=== PATIENT | male | born 1960 | race Caucasian/White ===

== ENCOUNTER 2020-11-13 09:11 | Observation (INO) | payer OTHER, SELFPAY ==
[2020-11-13] VITALS (9 sets, daily range): BP systolic 122–176; BP diastolic 67–96; PULSE 78–105; RESP 18–20; TEMP 36.8–38.1; O2SAT 93–98; BMI 41.5; BMI 40.4
--- NOTE | 2020-11-13 09:29 | W.ED.EXTPRO ---
Documented by User: RITO Toure 11/13/20 11:06 HPI - Extremity Problem General: Chief complaint: Extremity Injury, Upper Stated complaint: RUE PAIN,REDNESS,SWELLING Time Seen by Provider: 11/13/20 09:13 Source: patient Mode of arrival: ambulatory Limitations: no limitations History of Present Illness: HPI Narrative: Patient is a nice 60-year-old male who presents to ED today with a complaint of right upper extremity redness, swelling, and pain. He states yesterday he noticed a small knot near his volar forearm and states this morning he woke up with the entire forearm swollen and red. He denies any known injury or trauma. No previous DVTs. He states he has no known medical conditions and does not take any medications. He has no history of staph or MRSA. MD Complaint: extremity pain and extremity swelling Onset (ago): hour(s) Pain Consistency: constant Location: right and upper extremity Quality: burning Relieving factors: nothing Exacerbating factors: nothing Associated symptoms: Reports no associated symptoms; Deny chest pain or fever(s) Review of Systems Const: Denies: fever(s), chills, body aches, fatigue or malaise Card: Denies: chest pain, palpitations, irregular heart rhythm, edema, lightheadedness, syncope, pre-syncope or dyspnea on exertion Resp: Denies: dyspnea, productive cough, non-productive cough, wheezing, pain on inspiration, hemoptysis or chest congestion GI: Denies: abdominal pain Musc: Reports: extremity pain and extremity swelling; Denies: neck pain, back pain, joint pain or joint swelling Skin/Breast: Reports: changes in skin color (redness to R forearm) Neuro: Denies: headache(s), numbness in extremities, weakness in extremities or sensory changes [facility] ED PFSH: Medical History History of hypertension Surgical History No pertinent past surgical history Family History Grandfather Cancer Social History Smoking and tobacco status: current every day smoker Alcohol intake: current Alcohol intake frequency: 3 or more drinks per day Substance/Drug Use: never Physical Exam Const: COMMON NORMALS: no acute distress, patient oriented x3, no limitations and alert GENERAL APPEARANCE: cooperative NUTRITIONAL APPEARANCE: obese morbidly obese ORIENTATION/CONSCIOUSNESS: Yes awake, Yes oriented to person, Yes oriented to place and Yes oriented to time HENMT: COMMON NORMALS: normocephalic and atraumatic HEAD & SCALP: normocephalic and atraumatic Resp: COMMON NORMALS: normal respiratory effort and clear to auscultation bilaterally AUSCULTATION: clear to auscultation bilaterally Cardio: COMMON NORMALS: regular rate and regular rhythm RATE: regular rate RHYTHM: regular rhythm Extremity: COMMON NORMALS: full ROM and capillary refill normal RIGHT UPPER EXTREMITY: Yes lower arm OTHER: patient has fairly significant swelling throughout forearm; there is erythema and warmth mainly affecting the dorsal aspect; few scattered scabbed lesions; he has lymphangitic streaking up his arm that extends proximally and terminates about an inch from his axilla patient maintains full ROM; no compartment syndrome; cap refill and radial pulse normal; sensory intact Neuro: COMMON NORMALS: patient oriented x3, moves all extremities, no focal motor deficits and no sensory deficits noted SENSORIUM/ORIENTATION: Yes alert, Yes oriented to person, Yes oriented to place and Yes oriented to time Skin: NARRATIVE SKIN EXAM: see extremity assessment for pertinent skin findings Course Vital Signs: Vital signs: Vital Signs Temperature 98.2 F 11/13/20 15:40 Pulse Rate 78 11/13/20 15:40 Respiratory Rate 18 11/13/20 15:40 Blood Pressure 147/93 11/13/20 15:40 Pulse Oximetry 93 11/13/20 15:40 MDM - Extremity (Nontraumatic) MDM Narrative: Medical decision making narrative: Patient has R arm cellulitis with lymphangitis that has rapidly progressed since starting yesterday. He has streaking proximally up his arm to almost his axillary region. He is not tachy or febrile but has a white count of 19,000 and a CRP of over 250. Lacate is normal. Patient would benefit from hospitalization and continued IV abx. He has been started on vancomycin and fluids here. Dr. Peck will also evaluate patient. Lab Data: Labs: Lab Results 11/13/20 11/13/20 11/13/20 09:51 09:51 09:51 WBC 19.0 10^3/uL H 10 ^3/uL (4.0-10.0) RBC 5.12 10^6/uL 10^6 /uL (4.1-5.3) Hgb 16.1 g/dL g/dL (11.7-16.6) Hct 48.1 % % (42.0-52.0) MCV 93.9 fl fl (80-94) MCH 31.4 pg pg (28.0-34.0) MCHC 33.5 g/dL g/dL (30.0-36.0) RDW 13.1 % % (12.1-15.1) Plt Count 270 10^3/cmm 10^3 /cmm (130-400) MPV 9.5 fL fL (7.4-10.4) Neut % (Auto) 86.7 % % Lymph % (Auto) 7.1 % % [place] % (Auto) 5.1 % % Eos % (Auto) 0.2 % % Baso % (Auto) 0.2 % % Neut # (Auto) 16.43 10^3/uL H 1 0^3/uL (1.8-7.7) Lymph # (Auto) 1.3 10^3/uL 10^3/ uL (0.8-4.8) [place] # (Auto) 1.0 10^3/uL H 10^ 3/uL (0.2-0.9) Eos # (Auto) 0.0 10^3/uL 10^3/ uL (0.0-0.8) Baso # (Auto) 0.0 10^3/uL 10^3/ uL (0.0-0.1) Nucleated RBC % (a uto) 0 % % Nucleated RBCs # 0.0 /100WBC /100W BC Sodium 133 mmol/L L mmol /L (136-145) Potassium 4.2 mmol/L mmol/L (3.5-5.1) Chloride 97 mmol/L L mmol/ L (98-107) Carbon Dioxide 24 mmol/L mmol/L (22-29) Anion Gap 16.2 (5-19) BUN 9 mg/dL mg/dL (8-23) Creatinine 1.1 mg/dL mg/dL (0.7-1.2) GFR Calculation 68.3 mL/min L mL/ min (90-130) Glucose 110 mg/dL mg/dL (65-115) Calculated Osmolal ity 275 mOsm/kg L mOs m/kg (285-295) Lactic Acid 1.2 mmol/L mmol/L (0.5-2.2) Uric Acid Calcium 9.5 mg/dL mg/dL (8.5-10.5) Total Bilirubin 0.7 mg/dL mg/dL (0.15-1.2) AST 13 U/L U/L (0-40) ALT 13 U/L U/L (0-41) Alkaline Phosphata se 76 IU/L IU/L (40-130) Creatine Kinase C-Reactive Protein 250.8 mg/L H mg/L (0.0-4.9) Total Protein 7.8 g/dL g/dL (6.6-8.7) Albumin 3.7 g/dL g/dL (3.5-5.2) Globulin 4.1 g/dL g/dL (1.3-4.6) Procalcitonin 11/13/20 09:51 WBC RBC Hgb Hct MCV MCH MCHC RDW Plt Count MPV Neut % (Auto) Lymph % (Auto) [place] % (Auto) Eos % (Auto) Baso % (Auto) Neut # (Auto) Lymph # (Auto) [place] # (Auto) Eos # (Auto) Baso # (Auto) Nucleated RBC % (a uto) Nucleated RBCs # Sodium Potassium Chloride Carbon Dioxide Anion Gap BUN Creatinine GFR Calculation Glucose Calculated Osmolal ity Lactic Acid Uric Acid 6.4 mg/dL mg/dL (3.4-7.0) Calcium Total Bilirubin AST ALT Alkaline Phosphata se Creatine Kinase 111 U/L U/L (39-308) C-Reactive Protein Total Protein Albumin Globulin Procalcitonin 0.20 ng/mL ng/mL (0-0.5) Imaging Data^: US venous R UE: Radiologist's impression: [place] [address] [id number] ReportSigned Patient: Snehal Mosley RUnit #: [id number]: 1Acct#:[id number]/Sex: 60 / MADM Date: 11/13/20Loc: ERRoom/Bed:Attending Dr: Ordering Provider/Ordering MD: Marcela Gray Date of Service: 11/13/20 Procedure(s): [place] [id number] Accession Number(s): [id number] Report Number: [id number] PROCEDURE INFORMATION: Exam: US Duplex Right Upper Extremity Veins, Limited Exam date and time: 11/13/2020 9:28 AM Age: 60 years old Clinical indication: Swelling (edema) of limb and other: Redness; Upper extremity, right; Additional info: Redness/swelling TECHNIQUE: Imaging protocol: Real-time Duplex ultrasound of the Right Upper Extremity with 2-D villagran scale, color Doppler flow and spectral waveform analysis with image documentation. Limited exam focused on the right upper extremity veins. COMPARISON: No relevant prior studies available. FINDINGS: Right deep veins: Unremarkable. Axillary and brachial veins are patent throughout without thrombus. Normal Doppler waveforms. Normal compressibility and/or augmentation response. Visualized internal jugular and subclavian veins are patent. Right superficial veins: Unremarkable. Visualized cephalic and basilic veins are patent without thrombus. Soft tissues: There is diffuse subcutaneous edema of the right forearm. No masses are seen. US/[place] [id number] IMPRESSION: No evidence of deep vein thrombosis. Dictated By:Reyes Harrell By:Reyes Harrell Date/Time:11/13/20 1104DD/ 1102 Discharge Plan Discharge Patient Disposition: Admitted As Inpatient Admit Provider: Steve Collins Clinical Impression: Cellulitis of forearm, right, Acute lymphangitis of right upper extremity Condition: Stable Coding Level of Care Code ED Analytical Scientist for [facility] Exam Detailed Documented by User: Milton Peck DO 11/13/20 17:17 HPI - Extremity Problem General: Chief complaint: Extremity Injury, Upper Stated complaint: RUE PAIN,REDNESS,SWELLING Time Seen by Provider: 11/13/20 09:13 History of Present Illness: HPI Narrative: 60-year-old male comes in complaining of swelling and redness on the volar surface of the right forearm began yesterday with a small lump and is spread now proximally across the back of his arm and involves almost the entire right forearm extending nearly to the axilla he has tenderness in the axilla itself has had some sweats and chills no vomiting or diarrhea MD Complaint: extremity pain and extremity swelling Onset (ago): day(s) Pain Consistency: constant Location: right and upper extremity Quality: burning and aching Radiation: proximal Relieving factors: nothing Exacerbating factors: nothing Associated symptoms: Reports fever(s) and myalgias; Deny arthralgias, chest pain, rash or short of breath Review of Systems Const: Reports: fever(s) ENMT: Denies: throat pain, ear or mastoid pain, nasal discharge or nasal congestion Card: Denies: chest pain Resp: Denies: dyspnea, productive cough or non-productive cough GI: Denies: abdominal pain, nausea, vomiting, hematemesis, coffee ground emesis, diarrhea, constipation, bloating, hematochezia or melena : Denies: flank pain, dysuria, urinary frequency or urinary urgency Skin/Breast: Denies: rash PFSH ED PFSH: Medical History History of hypertension Surgical History No pertinent past surgical history Family History Grandfather Cancer Social History Smoking and tobacco status: current every day smoker Alcohol intake: current Alcohol intake frequency: 3 or more drinks per day Substance/Drug Use: never Physical Exam Const: COMMON NORMALS: no acute distress GENERAL APPEARANCE: cooperative and comfortable ORIENTATION/CONSCIOUSNESS: Yes awake, Yes oriented to person, Yes oriented to place and Yes oriented to time HENMT: COMMON NORMALS: normocephalic, atraumatic and hearing grossly normal bilaterally HEAD & SCALP: normocephalic and atraumatic Neck/C-Spine: COMMON NORMALS: no JVD Resp: COMMON NORMALS: normal respiratory effort, No retractions, No use of accessory muscles and clear to auscultation bilaterally AUSCULTATION: clear to auscultation bilaterally Cardio: COMMON NORMALS: no JVD, regular rate, regular rhythm and No murmurs present (Cardio) RATE: regular rate RHYTHM: regular rhythm GI: COMMON NORMALS: Soft to palpation and No hepatosplenomegaly present AUSCULTATION: Yes normoactive bowel sounds PALPATION: Yes Soft to palpation, No Tenderness to palpation present (GI), No Guarding due to palpation present (GI) and Yes No hepatosplenomegaly present Extremity: OTHER: Redness erythema induration of the skin spreading proximally involves almost the entire right forearm with a little sparing minimal in the hand itself however there is extension with lymphadenitis lymphadenitis extending up the posterior aspect of the right arm had mildly tender axillary lymphadenopathy no active drainage. Neuro: SENSORIUM/ORIENTATION: Yes oriented to person, Yes oriented to place and Yes oriented to time Skin: COMMON NORMALS: no rashes or lesions noted GENERAL SKIN EXAM: no rashes or lesions noted Course Vital Signs: Vital signs: Vital Signs Temperature 98.2 F 11/13/20 15:40 Pulse Rate 78 11/13/20 15:40 Respiratory Rate 18 11/13/20 15:40 Blood Pressure 147/93 11/13/20 15:40 Pulse Oximetry 93 11/13/20 15:40 MDM - Extremity (Nontraumatic) Lab Data: Labs: Lab Results 11/13/20 11/13/20 11/13/20 09:51 09:51 09:51 WBC 19.0 10^3/uL H 10 ^3/uL (4.0-10.0) RBC 5.12 10^6/uL 10^6 /uL (4.1-5.3) Hgb 16.1 g/dL g/dL (11.7-16.6) Hct 48.1 % % (42.0-52.0) MCV 93.9 fl fl (80-94) MCH 31.4 pg pg (28.0-34.0) MCHC 33.5 g/dL g/dL (30.0-36.0) RDW 13.1 % % (12.1-15.1) Plt Count 270 10^3/cmm 10^3 /cmm (130-400) MPV 9.5 fL fL (7.4-10.4) Neut % (Auto) 86.7 % % Lymph % (Auto) 7.1 % % [place] % (Auto) 5.1 % % Eos % (Auto) 0.2 % % Baso % (Auto) 0.2 % % Neut # (Auto) 16.43 10^3/uL H 1 0^3/uL (1.8-7.7) Lymph # (Auto) 1.3 10^3/uL 10^3/ uL (0.8-4.8) [place] # (Auto) 1.0 10^3/uL H 10^ 3/uL (0.2-0.9) Eos # (Auto) 0.0 10^3/uL 10^3/ uL (0.0-0.8) Baso # (Auto) 0.0 10^3/uL 10^3/ uL (0.0-0.1) Nucleated RBC % (a uto) 0 % % Nucleated RBCs # 0.0 /100WBC /100W BC Sodium 133 mmol/L L mmol /L (136-145) Potassium 4.2 mmol/L mmol/L (3.5-5.1) Chloride 97 mmol/L L mmol/ L (98-107) Carbon Dioxide 24 mmol/L mmol/L (22-29) Anion Gap 16.2 (5-19) BUN 9 mg/dL mg/dL (8-23) Creatinine 1.1 mg/dL mg/dL (0.7-1.2) GFR Calculation 68.3 mL/min L mL/ min (90-130) Glucose 110 mg/dL mg/dL (65-115) Calculated Osmolal ity 275 mOsm/kg L mOs m/kg (285-295) Lactic Acid 1.2 mmol/L mmol/L (0.5-2.2) Uric Acid Calcium 9.5 mg/dL mg/dL (8.5-10.5) Total Bilirubin 0.7 mg/dL mg/dL (0.15-1.2) AST 13 U/L U/L (0-40) ALT 13 U/L U/L (0-41) Alkaline Phosphata se 76 IU/L IU/L (40-130) Creatine Kinase C-Reactive Protein 250.8 mg/L H mg/L (0.0-4.9) Total Protein 7.8 g/dL g/dL (6.6-8.7) Albumin 3.7 g/dL g/dL (3.5-5.2) Globulin 4.1 g/dL g/dL (1.3-4.6) Procalcitonin 11/13/20 09:51 WBC RBC Hgb Hct MCV MCH MCHC RDW Plt Count MPV Neut % (Auto) Lymph % (Auto) [place] % (Auto) Eos % (Auto) Baso % (Auto) Neut # (Auto) Lymph # (Auto) [place] # (Auto) Eos # (Auto) Baso # (Auto) Nucleated RBC % (a uto) Nucleated RBCs # Sodium Potassium Chloride Carbon Dioxide Anion Gap BUN Creatinine GFR Calculation Glucose Calculated Osmolal ity Lactic Acid Uric Acid 6.4 mg/dL mg/dL (3.4-7.0) Calcium Total Bilirubin AST ALT Alkaline Phosphata se Creatine Kinase 111 U/L U/L (39-308) C-Reactive Protein Total Protein Albumin Globulin Procalcitonin 0.20 ng/mL ng/mL (0-0.5) Discharge Plan Discharge Patient Disposition: Admitted As Inpatient Admit Provider: Steve Collins Clinical Impression: Cellulitis of forearm, right, Acute lymphangitis of right upper extremity Condition: Stable Coding Level of Care Code ED Analytical Scientist for [facility] Fwd Exam Detailed
[2020-11-13 10:03] LABS: Basophils % 0.2 %; Eosinophils % 0.2 %; Hematocrit 48.1 % (42.0-52.0); Hemoglobin 16.1 g/dL (11.7-16.6); Lymphocytes # 1.3 10^3/uL (0.8-4.8); Lymphocytes % 7.1 %; Mean Corpuscular HGB Conc 33.5 g/dL (30.0-36.0); Mean Corpuscular Hemoglobin 31.4 pg (28.0-34.0); Mean Corpuscular Volume 93.9 fl (80-94); Mean Platelet Volume 9.5 fL (7.4-10.4); Monocytes % 5.1 %; Neutrophils # 16.43 10^3/uL (1.8-7.7); Neutrophils % 86.7 %; Nucleated Red Blood Cells % 0 %; Platelet Count 270 10^3/cmm (130-400); Red Blood Count 5.12 10^6/uL (4.1-5.3); Red Cell Distribution Width 13.1 % (12.1-15.1)
[2020-11-13] MEDS: vancomycin 1,000 MG in sodium chloride 0.9% 250 ML 250 MG IV (10:13)
[2020-11-13] MEDS: sodium chloride 0.9% 1,000 ML 999 ML IV (10:16)
[2020-11-13 10:23] LABS: Lactic Sepsis W/Reflex 1.2 mmol/L (0.5-2.2)
[2020-11-13 10:31] LABS: Alanine Aminotransferase 13 U/L (0-41); Albumin Level 3.7 g/dL (3.5-5.2); Alkaline Phosphatase 76 IU/L (40-130); Aspartate Amino Transferase 13 U/L (0-40); Blood Urea Nitrogen 9 mg/dL (8-23); C Reactive Protein 250.8 mg/L (0.0-4.9); Calcium 9.5 mg/dL (8.5-10.5); Carbon Dioxide 24 mmol/L (22-29); Chloride 97 mmol/L (98-107); Globulin 4.1 g/dL (1.3-4.6); Glomerular Filtration Rate 68.3 mL/min (90-130); Glucose 110 mg/dL (65-115); Osmolality Calculated 275 mOsm/kg (285-295); Sodium 133 mmol/L (136-145); Total Bilirubin 0.7 mg/dL (0.15-1.2); Total Protein 7.8 g/dL (6.6-8.7)
[2020-11-13 10:34] LABS: Anion Gap 16.2 (5-19); Potassium 4.2 mmol/L (3.5-5.1)
--- NOTE | 2020-11-13 11:07 | PC.NURSE ---
Received report from KESHAV Stewart
--- NOTE | 2020-11-13 12:56 | PM.HP ---
Providers/Chief Complaint Admitting Physician: Steve Collins MD Chief Complaint: RUE PAIN,REDNESS,SWELLING History of Present Illness Snehal Mosley is a 60 year old male with a past medical history of hypertension off medications, who presents [facility] due to complaints of right arm swelling, erythema, warmth, tenderness. Patient tells me that about a day ago, he woke up with a little bit of a bump right under his right elbow, and over the next 24 hours it rapidly evolved to diffuse swelling just above the right elbow extending down to right mid arm, with swelling, erythema, warmth, tenderness. Denies any injuries, does report he has cats, and he has a cat scratch in 2 areas involved with erythema, one just at the elbow joint line, 1 in the mid forearm. Denies any rabbit hunting. Denies any fishing. Has had subjective fevers, chills. Denies history of diabetes, no history immunocompromise state. In the emergency room, he was found to have cellulitis, ultrasound was negative for DVT. Was given vancomycin, hospitalist team was called for admission for cellulitis. Currently complaining of minimal pain, no pain with range of motion just tightness, no loss of sensation, good radial and ulnar pulses, good capillary refill, no significant evidence of compartment syndrome. Review of Systems Const: Reports: fever(s) and chills; Denies: body aches, fatigue or malaise Eyes: Denies: change in vision or blurry vision ENMT: Denies: nasal congestion Resp: Denies: dyspnea, productive cough, non-productive cough or wheezing GI: Denies: abdominal pain, nausea, vomiting, hematemesis, diarrhea, constipation, hematochezia or melena : Denies: flank pain, difficulty urinating, dysuria or urinary frequency Musc: Denies: neck pain or back pain Skin/Breast: Reports: rash, erythema, skin tenderness and skin swelling; Denies: skin pain Neuro: Denies: headache(s), dizziness or vertigo Endo: Denies: polyuria or polydipsia Jose Martin/Lymph: Reports: enlarged lymph nodes and tender lymph nodes Medications/Allergies Home Medications Medication Instructions Recorded Confirmed Last Taken Type No Known Home Medications 11/13/20 11/13/20 Unknown History Allergies Allergy/AdvReac Type Severity Reaction Status Date / Time No Known Allergies Allergy Unverified 11/13/20 11:10 PFSH Acute PFSH: Medical History (Updated 11/13/20 @ 13:02 by Steve Collins MD) History of hypertension Surgical History (Updated 11/13/20 @ 13:02 by Steve Collins MD) No pertinent past surgical history Family History (Updated 11/13/20 @ 13:02 by Steve Collins MD) Grandfather Cancer Social History (Updated 11/13/20 @ 13:02 by Steve Collins MD) Smoking and tobacco status: current every day smoker Alcohol intake: current Alcohol intake frequency: 3 or more drinks per day Substance/Drug Use: never Vitals/I&O/Wt Last Vital Signs Temp 98.3 F 11/13/20 12:00 Pulse 85 11/13/20 12:00 Resp 20 H 11/13/20 12:00 BP 176/91 11/13/20 12:00 Pulse Ox 98 11/13/20 12:00 11/12/20 11/13/20 11/13/20 22:59 06:59 14:59 Intake Total 250 / 250 Balance 250 / 250 Weight last 48 hrs Weight 138.799 kg Physical Exam Const: COMMON NORMALS: no acute distress and patient oriented x3 GENERAL APPEARANCE: cooperative and comfortable HENMT: COMMON NORMALS: normocephalic HEAD & SCALP: normocephalic Eye: COMMON NORMALS: Equal, round and reactive pupils present and EOMs intact bilaterally GENERAL EYE: appearance normal, both eyes and all related structures PUPIL: Yes Equal, round and reactive pupils present Neck/C-Spine: COMMON NORMALS: full ROM and no lymphadenopathy THYROID: Thyroid normal Lymph: LYMPHATIC: no lymphadenopathy noted Resp: COMMON NORMALS: normal respiratory effort, No retractions, No use of accessory muscles and clear to auscultation bilaterally AUSCULTATION: clear to auscultation bilaterally Cardio: COMMON NORMALS: regular rate, regular rhythm, S1 normal heart sound present, S2 normal heart sound present, No gallops present (Cardio), No clicks present (Cardio) and No murmurs present (Cardio) RATE: regular rate RHYTHM: regular rhythm HEART SOUNDS: S1 normal heart sound present and S2 normal heart sound present GI: COMMON NORMALS: Normal to inspection, nondistended, normoactive bowel sounds present, Soft to palpation and non-tender Extremity: COMMON NORMALS: normal to inspection, full ROM and no pedal edema NARRATIVE EXTREMITY EXAM: Right upper extremity, erythema, swelling, tenderness extending from just above the right elbow joint line, extending down to the mid forearm, patchy areas of erythema, swelling, tenderness, 2 distinct areas of breaks in the skin, indicated as possible this cat scratches, 1 right just below the right elbow joint line, 0.5 cm long, 1 at the right mid forearm for 5 cm long, lymphadenopathy, axillary lymphadenopathy, epitrochlear lymph node Neuro: COMMON NORMALS: patient oriented x3, CN's II-XII intact bilaterally, moves all extremities and no focal motor deficits Psych: COMMON NORMALS: mental status grossly normal, Normal thought process present and cooperative THOUGHT PROCESS: Normal thought process present Data : 11/13/20 09:51 11/13/20 09:51 Micro: Microbiology 11/13/20 09:51 Blood Culture - Preliminary Blood SPECIMEN COLLECTED 11/13/20 09:51 Blood Culture - Preliminary Blood SPECIMEN COLLECTED A&P Assessment and plan (1) Cellulitis of forearm, right: -Cellulitis of right lower extremity -With lymphadenopathy, some degree of lymphadenitis -Given evidence of cat scratch, highly suspicious of cat scratch fever -But cannot rule out underlying cellulitis Plan: -Given rapid nature of involvement, will order CT scan to evaluate for possible necrotizing fasciitis, order CPK, and as is involving the right elbow need to evaluate for possible septic joint -CPK, pro-Gonzalo, monitor for fevers -Continue vancomycin -Add azithromycin -Bartonella PCR -Monitor for fevers, monitor for compartment syndrome -Full code -Lovenox for DVT prophylaxis History of hypertension, off medications, start Norvasc Status: Acute (2) Acute lymphangitis of right upper extremity: Status: Acute Attestations Medical Necessity Statement*: Patient requires hospitalization, outpatient with observation, for cellulitis right forearm, cat scratch disease, Coding Level of Care Code Acute Tilt Tray Driver for [facility] Diagnoses Cellulitis of forearm, right L03.113 Acute lymphangitis of right upper extremity L03.123
--- NOTE | 2020-11-13 14:36 | CTR_ITS ---
PROCEDURE INFORMATION: Exam: CT Right Upper Extremity Without Contrast, Forearm Exam date and time: 11/13/2020 2:36 PM Age: 60 years old Clinical indication: Arm, lower and elbow; Right; Patient HX: R forearm and elbow pain redness and swelling; Additional info: Celullitis TECHNIQUE: Imaging protocol: CT of the Right upper extremity without contrast was performed. Exam focused on the forearm. Radiation optimization: All CT scans at this facility use at least one of these dose optimization techniques: automated exposure control; mA and/or kV adjustment per patient size (includes targeted exams where dose is matched to clinical indication); or iterative reconstruction. COMPARISON: [place] [id number] 11/13/2020 9:51 AM RADIATION DOSE METRICS: Total DLP (mGy-cm): 1878.89 FINDINGS: Bones/joints: Normal. No acute fracture or dislocation. Soft tissues: Diffuse subcutaneous nonlocalized edema seen about the visualized arm, greatest in the region the forearm without focal fluid collection, suggestive of a cellulitis. CT/CT forearm RT wo con* [id number] IMPRESSION: 1. Negative for bony abnormality. 2. Diffuse subcutaneous nonlocalized edema seen about the visualized arm, greatest in the region the forearm without focal fluid collection, suggestive of a cellulitis. Radiation Dose CTDIVOL = (mGy): DLP = 1878.89 (mGy-cm)
[2020-11-13] MEDS: amlodipine 10 mg Tablet PO (14:52)
[2020-11-13] MEDS: azithromycin 250 mg Tablet 500 MG PO (15:30)
[2020-11-13] MEDS: enoxaparin 40 mg/0.4 mL Syringe SUBCUT (15:31)
[2020-11-13] MEDS: D5-NS 0.45% + KCL 20 mEq 20 MEQ/1,000 ML BAG 100 MEQ IV (15:32)
[2020-11-13 15:59] LABS: Creatine Phosphokinase 111 U/L (39-308); Uric Acid 6.4 mg/dL (3.4-7.0)
[2020-11-13] MEDS: vancomycin 1,500 MG/300 ML PIGGYBACK 200 MG IV (17:50)
--- NOTE | 2020-11-13 17:55 | PC.NURSE ---
Shift Note Frequent safety and comfort rounds continue. Orders and/or nursing care completed as indicated. Patient sat up in chair upon arrival from the emergency department. Patient is currently resting comfortably in bed with no complaints. Will continue to monitor.
--- NOTE | 2020-11-13 20:45 | PC.NURSE ---
Patient was transferred down to [place] at 2020 in a wheel chair. At 2041 the patient was brought back up and settled in bed. There were no complications that took place during the trip down and back.
[2020-11-14] MEDS: D5-NS 0.45% + KCL 20 mEq 20 MEQ/1,000 ML BAG 100 MEQ IV ×3 (01:32→21:55)
[2020-11-14 03:57] VITALS: BP 172/90; PULSE 96; RESP 18; TEMP 36.7; O2SAT 94
[2020-11-14 06:05] LABS: Basophils % 0.2 %; Eosinophils # 0.1 10^3/uL (0.0-0.8); Eosinophils % 0.4 %; Hematocrit 44.4 % (42.0-52.0); Hemoglobin 14.7 g/dL (11.7-16.6); Lymphocytes # 1.3 10^3/uL (0.8-4.8); Lymphocytes % 7.9 %; Mean Corpuscular HGB Conc 33.1 g/dL (30.0-36.0); Mean Corpuscular Hemoglobin 31.7 pg (28.0-34.0); Mean Corpuscular Volume 95.7 fl (80-94); Mean Platelet Volume 9.6 fL (7.4-10.4); Monocytes # 1.1 10^3/uL (0.2-0.9); Monocytes % 6.6 %; Neutrophils # 14.31 10^3/uL (1.8-7.7); Neutrophils % 84.3 %; Nucleated Red Blood Cells % 0 %; Platelet Count 235 10^3/cmm (130-400); Red Blood Count 4.64 10^6/uL (4.1-5.3); Red Cell Distribution Width 13.4 % (12.1-15.1)
[2020-11-14 06:32] LABS: Alanine Aminotransferase 11 U/L (0-41); Albumin Level 3.4 g/dL (3.5-5.2); Alkaline Phosphatase 77 IU/L (40-130); Anion Gap 15.2 (5-19); Aspartate Amino Transferase 14 U/L (0-40); Blood Urea Nitrogen 9 mg/dL (8-23); C Reactive Protein 241.8 mg/L (0.0-4.9); Calcium 9.1 mg/dL (8.5-10.5); Carbon Dioxide 21 mmol/L (22-29); Chloride 99 mmol/L (98-107); Glomerular Filtration Rate 98.6 mL/min (90-130); Glucose 122 mg/dL (65-115); Osmolality Calculated 272 mOsm/kg (285-295); Potassium 4.2 mmol/L (3.5-5.1); Sodium 131 mmol/L (136-145); Total Bilirubin 0.5 mg/dL (0.15-1.2); Total Protein 7.4 g/dL (6.6-8.7)
[2020-11-14 06:36] LABS: Procalcitonin 0.22 ng/mL (0-0.5)
[2020-11-14] MEDS: vancomycin 1,500 MG/300 ML PIGGYBACK 200 MG IV ×2 (06:43→18:41)
[2020-11-14 08:24] VITALS: BP 135/84; PULSE 85; RESP 17; TEMP 36.9; O2SAT 95
[2020-11-14] MEDS: pantoprazole DR 40 mg Tablet PO (08:54)
[2020-11-14] MEDS: amlodipine 10 mg Tablet PO (08:54)
[2020-11-14] MEDS: piperacillin-tazobactam 3.375 GM in sodium chloride 0.9% (plus) 50 ML IV ×2 (10:51→21:01)
--- NOTE | 2020-11-14 11:16 | P.PN_ITS ---
Subjective Subjective: Interval history: Patient was seen this morning, continues to have right hand redness, he has a particular area of increased erythema, along the lateral aspect of the right hand, near the elbow joint, and also the redness is extending down to more the proximal phalanges, near the right hand, no pain with range of motion, no paresthesias, febrile overnight up to 100.6, no abdominal pain, no diarrhea, no blurry vision, no headache He does tell me that a few days before the cellulitis started, he was cleaning out his daughter's car, and he got under the dash, and he thinks he might of gotten a scratch from something under the dash but is not sure what, that resulted in a break in the screen, Vitals/I&O/Wt Last Vital Signs Temp 98.4 F 11/14/20 08:24 Pulse 85 11/14/20 08:24 Resp 17 11/14/20 08:24 BP 135/84 11/14/20 08:24 Pulse Ox 95 11/14/20 08:24 11/13/20 11/14/20 11/14/20 22:59 06:59 14:59 Intake Total 1020 / 2270 1540 / 3810 780 / 780 Output Total 300 / 300 Balance 720 / 1970 1540 / 3510 780 / 780 Weight last 48 hrs Weight 138.799 kg Weight 138.799 kg Physical Exam Const: COMMON NORMALS: no acute distress and patient oriented x3 Resp: COMMON NORMALS: normal respiratory effort, No retractions, No use of accessory muscles and clear to auscultation bilaterally AUSCULTATION: clear to auscultation bilaterally Cardio: COMMON NORMALS: regular rate, regular rhythm, S1 normal heart sound present and S2 normal heart sound present RATE: regular rate RHYTHM: regular rhythm HEART SOUNDS: S1 normal heart sound present and S2 normal heart sound present GI: COMMON NORMALS: Normal to inspection, nondistended, normoactive bowel so unds present, Soft to palpation and non-tender PALPATION: Yes Soft to palpation Extremity: COMMON NORMALS: normal to inspection, full ROM and no pedal edema NARRATIVE EXTREMITY EXAM: Right upper extremity, erythema, swelling, tenderness extending from just above the right elbow joint line, extending down now to the proximal phalanges of the right arm, patchy areas of erythema, swelling, tenderness, 2 distinct areas of breaks in the skin, indicated as possible this cat scratches, 1 right just below the right elbow joint line, 0.5 cm long, 1 at the right mid forearm for 5 cm long, lymphadenopathy, axillary lymphadenopathy, epitrochlear lymph node He also has a distinct area of erythema, and density right under the biceps muscle, no palpable pocket of fluid Neuro: COMMON NORMALS: patient oriented x3 Psych: COMMON NORMALS: mental status grossly normal Data : 11/14/20 05:34 11/14/20 05:34 Micro: Microbiology 11/13/20 09:51 Blood Culture - Preliminary Blood NEGATIVE TO DATE 11/13/20 09:51 Blood Culture - Preliminary Blood NEGATIVE TO DATE A&P Assessment and plan (1) Cellulitis of forearm, right: -Cellulitis of right lower extremity -With lymphadenopathy, some degree of lymphadenitis -Given evidence of cat scratch, highly suspicious of cat scratch fever component -However continues to be quite erythematous, tender, with cellulitis area extending down to the right proximal phalanges, also has an area of induration right under the right bicep muscles that is palpable, right elbow continues to be red hot and warm Plan: -Given continued rapid nature of involvement, I spoke to Dr. Santiago, will order MRI -Unlikely to be necrotizing fasciitis, CPK within normal limits, but will add clindamycin -We will add Zosyn for anaerobic coverage -Continue vancomycin for gram-positive staph coverage -Continue azithromycin for possible cat scratch fever -Bartonella PCR -Monitor blood cultures -Monitor for fevers, monitor for compartment syndrome -Full code -Lovenox for DVT prophylaxis History of hypertension, off medications, start Norvasc Status: Acute (2) Acute lymphangitis of right upper extremity: Status: Acute Attestations Medical Necessity Statement*: Patient requires hospitalization for right arm cellulitis, rapidly involving, concerning for possible deep tissue infection, possible septic joint, possible necrotizing fasciitis, requiring additional antibiotics, consultation, MRI Coding Level of Care Code Acute Private Mortgage Banker Safe for Bill Palma Diagnoses Cellulitis of forearm, right L03.113 Acute lymphangitis of right upper extremity L03.123
[2020-11-14 11:57] VITALS: BP 152/99; PULSE 86; RESP 18; TEMP 37; O2SAT 96
[2020-11-14] MEDS: clindamycin 600 MG/50 ML PREMIX 100 MG IV ×2 (12:50→19:27)
--- NOTE | 2020-11-14 13:38 | PC.CHAP ---
Pastoral Care Encounter/Spiritual Assessment Type of Contact [] Declined drying oven attendant visit [] Patient/Family/Request visit [] Outpatient visit [] Follow-up visit [] Physician referral [] Code/Alert [XX] Routine visit [] Staff referral [] Actively dying [] Patient sleeping [] Family support [] [] Out of room [] Palliative care [] [] Receiving care in room [] Pre-surgical visit [] Trauma [] Long length of stay [] ICU visit [] Other: Relational/Emotional Strength [XX] Patient feels connected with others/family/visitors/staff [] Distress [] Loneliness/isolation [] Abandonment Spirituality of Patient [] Person of Rosalinda [] Attends Hinduism of their Rosalinda [] Believes in Prayer [] Reads Bible or Baptism materials [] There are Spiritual issues to be addressed Injector Assembler Interventions [] Prayer [XX] Active listening [XX] Non-anxious presence [] Spiritual/emotional support [] Crisis/trauma care [] Spiritual counseling [] Bereavement support [] Provided bereavement packet [] Provided Bible/devotional materials [] Provided toy/stuffed animal, coloring book to patient or family member [] Provided Communion [] Anointing/[place] [] Salvation [] Completed spiritual assessment [] Other: Impact on Illness or Injury [] Angry [] Fearful [] Anxious [] Often cries [] Exhaustion [] Unable to work [] Unable to attend latter day [] Unable to walk/stand [] Unable to read [] Unable to drive [] Unable to eat/drink [] Unable to sleep [] Unable to be with family [] Patient intubated [] Other: Summary: Spiritual assessment incomplete. Pt denied needing anything and stated that he was fine. Brief visit. Time spent with patient: 5 mins
[2020-11-14] MEDS: lisinopril 20 mg Tablet PO (14:03)
[2020-11-14] MEDS: azithromycin 250 mg Tablet PO (15:50)
[2020-11-14] MEDS: enoxaparin 40 mg/0.4 mL Syringe SUBCUT (15:51)
[2020-11-14 16:40] VITALS: BP 129/81; PULSE 86; RESP 18; TEMP 36.7; O2SAT 97
[2020-11-14 17:43] LABS: Vancomycin Trough 7.1 ug/mL (10-15)
[2020-11-14 20:00] VITALS: BP 110/66; PULSE 86; RESP 21; TEMP 37.3; O2SAT 95
--- NOTE | 2020-11-14 20:09 | PC.PHAR ---
Pharmacokinetic dosing service Date: 11/14/20 Time: 1999 Patient: Floor: Weight: 138.799 Kilograms Vancomycin single level analysis: Current dose being given: mg Current dosing interval: hrs Current infusion time (hrs): 1 Single level Trough Data: Trough level obtained: 7.1 mcg/ml Timing of trough - # of hrs before next dose: 1.2 Hrs Desired peak: 40 mcg/ml Desired trough: 15 mcg/ml Diagnosis: Relevant medical/social history: Cultures and sensitivities: Other labs: Estimated PK Parameters: New rate constant (wyatt): 0.092 hr-1 Half-life: 7.53 Hours Vd from levels: 124.92 Liters (0.7 L/kg) CLvanco= 11.493 L/hr Estimated New Dose and Interval Recommended dose: 3447.6 mg Recommended interval: 11.7 Hrs Patient response: Patient is responding to treatment [yes/no] wbc decreasing, S/SX reduced [yes/no] Renal function is stable/unstable Recommendations: Give Vancomycin 1500 mg q 8 hrs. Infuse over 1.5 hrs Expected Cpeak: 21.5 mcg/mL Expected Ctrough: 11.8 mcg/mL AUC 0-24 /ANTHONY Data: ANTHONY 0.5 mcg/mL: AUC/ANTHONY: 783.1 ANTHONY 1.0 mcg/mL: AUC/ANTHONY: 391.5 Recommended labs and intervals: Measure Bun and Scr 3 times/week. Renal dosing of other antibiotics (review renal dosing of other medications and list guidelines here): Thank you for the consult, will continue to follow. Signature:
Chasidy Javed [facility]
[2020-11-14 23:12] VITALS: BP 121/70; PULSE 82; RESP 18; TEMP 37.4; O2SAT 96
[2020-11-15] MEDS: vancomycin 1,500 MG/300 ML PIGGYBACK 200 MG IV ×3 (00:50→16:24)
[2020-11-15 03:18] VITALS: BP 117/77; PULSE 83; RESP 20; TEMP 37.3; O2SAT 96
[2020-11-15] MEDS: clindamycin 600 MG/50 ML PREMIX 100 MG IV ×2 (03:21→11:10)
[2020-11-15] MEDS: piperacillin-tazobactam 3.375 GM in sodium chloride 0.9% (plus) 50 ML IV ×2 (04:21→12:09)
[2020-11-15 06:32] LABS: Basophils % 0.3 %; Eosinophils # 0.2 10^3/uL (0.0-0.8); Eosinophils % 1.8 %; Hematocrit 40.6 % (42.0-52.0); Hemoglobin 13.1 g/dL (11.7-16.6); Lymphocytes # 1.2 10^3/uL (0.8-4.8); Lymphocytes % 11.9 %; Mean Corpuscular HGB Conc 32.3 g/dL (30.0-36.0); Mean Corpuscular Hemoglobin 31.6 pg (28.0-34.0); Mean Corpuscular Volume 97.8 fl (80-94); Mean Platelet Volume 9.4 fL (7.4-10.4); Monocytes % 9.8 %; Neutrophils # 7.67 10^3/uL (1.8-7.7); Neutrophils % 75.4 %; Nucleated Red Blood Cells % 0 %; Platelet Count 221 10^3/cmm (130-400); Red Blood Count 4.15 10^6/uL (4.1-5.3); Red Cell Distribution Width 13.6 % (12.1-15.1); White Blood Count 10.2 10^3/uL (4.0-10.0)
[2020-11-15 07:08] LABS: Procalcitonin 0.14 ng/mL (0-0.5)
[2020-11-15 07:10] LABS: Alanine Aminotransferase 13 U/L (0-41); Albumin Level 3.1 g/dL (3.5-5.2); Alkaline Phosphatase 64 IU/L (40-130); Anion Gap 14.2 (5-19); Aspartate Amino Transferase 14 U/L (0-40); Blood Urea Nitrogen 9 mg/dL (8-23); C Reactive Protein 123.5 mg/L (0.0-4.9); Calcium 8.8 mg/dL (8.5-10.5); Carbon Dioxide 23 mmol/L (22-29); Chloride 102 mmol/L (98-107); Globulin 3.8 g/dL (1.3-4.6); Glomerular Filtration Rate 98.6 mL/min (90-130); Glucose 115 mg/dL (65-115); Osmolality Calculated 280 mOsm/kg (285-295); Potassium 4.2 mmol/L (3.5-5.1); Sodium 135 mmol/L (136-145); Total Bilirubin 0.3 mg/dL (0.15-1.2); Total Protein 6.9 g/dL (6.6-8.7)
[2020-11-15 07:48] VITALS: BP 125/78; PULSE 79; RESP 18; TEMP 36.7; O2SAT 95
[2020-11-15] MEDS: amlodipine 10 mg Tablet PO (08:05)
[2020-11-15] MEDS: pantoprazole DR 40 mg Tablet PO (08:05)
[2020-11-15] MEDS: lisinopril 20 mg Tablet PO (08:05)
[2020-11-15] MEDS: D5-NS 0.45% + KCL 20 mEq 20 MEQ/1,000 ML BAG 100 MEQ IV (08:42)
--- NOTE | 2020-11-15 10:42 | PM.PN ---
Vitals/I&O/Wt Last Vital Signs Temp 98.0 F 11/15/20 07:48 Pulse 79 11/15/20 07:48 Resp 18 11/15/20 07:48 BP 125/78 11/15/20 07:48 Pulse Ox 95 11/15/20 07:48 11/14/20 11/15/20 11/15/20 22:59 06:59 14:59 Intake Total 1695 / 3525 400 / 3925 1050 / 1050 Balance 1695 / 3525 400 / 3925 1050 / 1050 Weight last 48 hrs Weight 138.799 kg Data : 11/15/20 06:20 11/15/20 06:20 Micro: Microbiology 11/13/20 09:51 Blood Culture - Preliminary Blood NEGATIVE TO DATE 11/13/20 09:51 Blood Culture - Preliminary Blood NEGATIVE TO DATE Coding Level of Care Code Acute Distillery Worker General for Bill Palma
[2020-11-15 11:02] LABS: Erythrocyte Sedimentation Rate 74 mm/hr (0-10)
[2020-11-15 11:19] VITALS: BP 125/76; PULSE 76; RESP 18; TEMP 36.3; O2SAT 97
--- NOTE | 2020-11-15 14:07 | PC.RESP ---
SMOKING CESSATION INFORMATION SENT TO PATIENT.
--- NOTE | 2020-11-15 14:34 | PC.NURSE ---
Patient to MRI at this time.
--- NOTE | 2020-11-15 15:20 | PC.NURSE ---
Patient returned to room at this time.
[2020-11-15 15:27] VITALS: BP 124/71; PULSE 79; RESP 18; TEMP 36.4; O2SAT 98
--- NOTE | 2020-11-15 16:00 | PC.NURSE ---
IV removed at this time and patient tolerated well. Patient is A&Ox3. Respirations even and non-labored on room air. Reviewed patient discharge with patient at this time. Patient verbalized understanding of discharge instructions and follow up appointments. Patient ambulated from the floor with a steady gait.
[2020-11-15] MEDS: azithromycin 250 mg Tablet PO (16:22)
[2020-11-15] MEDS: enoxaparin 40 mg/0.4 mL Syringe SUBCUT (16:22)
--- NOTE | 2020-11-15 16:45 | P.CONIM_ITS ---
Providers/Reason For Consult Consulting Physician/Specialty*: Álvaro Santiago MD; orthopedic surgery Reason for Consult*: Cellulitis, possible abscess left arm Attending Physician: Dc Galvan MD History of Present Illness History of Present Illness Snehal Mosley is a 60 year old male who describes awakening Sunday, 3 days ago with a prominence over his right dorsal forearm. Over the following day he described progressive swelling and erythema from his elbow to his wrist. He described overall having subjective fevers and chills. He was admitted to the hospital here 11/13/2020 and begun on IV antibiotics. Yesterday was called with concerns that the redness had spread into his digits about possible deep abscess. Unfortunately due to his size he was not able to fit in our MRI scanner. CT scan was obtained which showed no definitive deep abscess. The patient today states he is feeling much better. He feels the redness and swelling have improved and he no longer has any visual systemic symptoms Meds/Allergies Home Medications and Allergies Home Medications Medication Instructions Recorded Confirmed Last Taken Type No Known Home Medications 11/13/20 11/13/20 Unknown History Allergies Allergy/AdvReac Type Severity Reaction Status Date / Time No Known Allergies Allergy Unverified 11/13/20 11:10 Current Medications Current Medications Generic Name Dose Route Start Last Admin Trade Name Freq PRN Reason Stop Dose Admin Amlodipine Besylate 10 mg 11/13/20 13:10 11/15/20 08:05 Amlodipine 10 Mg Tablet PO 10 mg DAILY WILLIE Administration Azithromycin 250 mg 11/14/20 15:30 11/15/20 16:22 Azithromycin 250 Mg Tablet PO 250 mg Q24H WILLIE Administration Protocol Enoxaparin Sodium 40 mg 11/13/20 15:30 11/15/20 16:22 Enoxaparin 40 Mg/0.4 Ml Syringe SUBCUT 40 mg Q24H WILLIE Administration Potassium Chloride/Dextrose/Sod Cl 20 meq in 1,000 mls @ 100 mls/hr 11/13/20 14:36 11/15/20 08:42 D5-Ns 0.45% + Kcl 20 Meq IV 100 mls/hr .Q10H WILLIE Administration Piperacillin Sod/Tazobactam 50 mls @ 12.5 mls/hr 11/14/20 11:00 11/15/20 12:09 Sod 3.375 gm/ Sodium Chloride IV 12.5 mls/hr Q8H WILLIE Administration Protocol Clindamycin HCl/Dextrose 600 mg in 50 mls @ 100 mls/hr 11/14/20 12:00 11/15/20 11:40 Cleocin IV Infused Q8H WILLIE Infusion Protocol Vancomycin/PEG/NADA/Lysine/Water 1,500 mg in 300 mls @ 200 mls/hr 11/15/20 00:00 11/15/20 16:24 Vancocin IV 200 mls/hr Q8H WILLIE Administration Lisinopril 20 mg 11/14/20 13:55 11/15/20 08:05 Lisinopril 20 Mg Tablet PO 20 mg DAILY WILLIE Administration Pantoprazole Sodium 40 mg 11/14/20 09:00 11/15/20 08:[address] 40 Mg Tablet PO 40 mg DAILY WILLIE Administration PFSH Acute PFSH: Medical History History of hypertension Surgical History No pertinent past surgical history Family History Grandfather Cancer Social History Smoking and tobacco status: current every day smoker Alcohol intake: current Alcohol intake frequency: 3 or more drinks per day Substance/Drug Use: never Vitals/I&O/Wt Last Vital Signs Temp 97.5 F L 11/15/20 15:27 Pulse 79 11/15/20 15:27 Resp 18 11/15/20 15:27 BP 124/71 11/15/20 15:27 Pulse Ox 98 11/15/20 15:27 11/15/20 11/15/20 11/15/20 06:59 14:59 22:59 Intake Total 400 / 3925 1400 / 1400 Balance 400 / 3925 1400 / 1400 Physical Exam Narrative: EXAM NARRATIVE: Mr. Mosley is a heavier set male in no obvious distress. He has clear swelling from his elbow extending down into his hand. There is a slight erythema induration from the dorsal elbow to approximately the mid forearm and a raised macular rash over the ulnar aspect of his left arm. There is no palpable fluctuance I can appreciate. He can fully extend his elbow and flex to 140 degrees. He can pronate and supinate 70 degrees. His wrist can be dorsiflexed and palmar flex 60 degrees in each direction. He can reach a complete clenched fist as well as extend his digits. His sensation is intact to light touch. Data Imaging^: Other CT: I personally reviewed and interpreted this imaging study as follows: (CT right upper extremity including forearm and elbow) Radiologist's impression: No bony abnormalities are identified. Subcutaneous edema is seen in the forearm without focal fluid collections. The clinical appearance is most suggestive of cellulitis. A&P Assessment and plan (1) Cellulitis of forearm, right: The patient has full motion in his elbow wrist and hand. There is nothing clinically to suggest a septic arthritis. There is no muscular irritation with active motion to suggest any infectious process of his muscular compartments. The exam is most consistent with a cellulitis. Clinically he feels he is doing better. With his improvement over the last 24 hours I am not certain the MRI would add anything. I think it would be reasonable to change him to oral antibiotics and a plan discharge home. I can follow-up with him on Sunday. Status: Acute Coding Level of Care Code Acute Statistical Consultant for [facility] Louie Diagnoses Cellulitis of forearm, right L03.113
--- NOTE | 2020-11-15 16:57 | P.DS_ITS ---
Discharge Providers Date of Admission: 11/14/20 13:41 Date of Discharge: November 15, 2020 Attending Provider at Admission: Steve Collins MD Attending Provider at Discharge: Dc Galvan MD Diagnoses at Discharge Discharge Diagnosis (1) Cellulitis of forearm, right: Status: Acute Reason for Visit Reason for Visit: RUE PAIN,REDNESS,SWELLING Hospital Course Hospital Course 60 year old male with a past medical history of hypertension off medications, who presents [facility] due to complaints of right arm swelling, erythema, warmth, tenderness. Patient tells me that about a day ago, he woke up with a little bit of a bump right under his right elbow, and over the next 24 hours it rapidly evolved to diffuse swelling just above the right elbow extending down to right mid arm, with swelling, erythema, warmth, tenderness. Denies any injuries, does report he has cats, and he has a cat scratch in 2 areas involved with erythema, one just at the elbow joint line, 1 in the mid forearm.he was admitted for the management of rt forearm cellulitis. During this hospital stay CT scan of the right forearm was done: Diffuse subcutaneous nonlocalized edema suggestive of cellulitis. CV venous duplex UE RT: No evidence of deep vein thrombosis. Blood cultures were negative. MRI of the forearm was not able to be done because he failed to fit in the machine. Patient was kept on broad-spectrum antibiotics to which his erythema and swelling responded well, time of discharge, swelling had gone down, erythema was improving, sensations were intact, range of motion was intact, patient was also seen by orthopedic, as there was some concern for possible necrotizing fasciitis, based on the clinical presentation very less likelyhood. Patient is being discharged on Augmentin as well as levofloxacin for additional 7 days, he will follow up with Dr. Hemphill in the clinic. Physical Exam Const: COMMON NORMALS: patient oriented x3 HENMT: COMMON NORMALS: normocephalic and atraumatic HEAD & SCALP: normocephalic and atraumatic Resp: COMMON NORMALS: clear to auscultation bilaterally AUSCULTATION: clear to auscultation bilaterally Cardio: COMMON NORMALS: regular rate, regular rhythm, S1 normal heart sound present, S2 normal heart sound present, No gallops present (Cardio), No murmurs present (Cardio), No rub (Cardio) and Peripheral pulses 2+ throughout RATE: regular rate RHYTHM: regular rhythm HEART SOUNDS: S1 normal heart sound present and S2 normal heart sound present PERIPHERAL PULSES: Peripheral pulses 2+ throughout GI: COMMON NORMALS: Normal to inspection, nondistended, normoactive bowel sounds present, Soft to palpation, non-tender, No hepatosplenomegaly present and no masses AUSCULTATION: Yes normoactive bowel sounds PALPATION: Yes Soft to palpation and Yes No hepatosplenomegaly present RECTAL EXAM: Yes deferred Extremity: COMMON NORMALS: no clubbing, cyanosis or edema and no pedal edema OTHER: erythema, and swelling of rt upper extremity,extending below elbow. Neuro: COMMON NORMALS: patient oriented x3 Discharge Data Data Completed and Pending: Completed Studies During Hospitalization Category Date Time Status CT forearm RT wo con* [id number] Routine Cat Scan 11/13/20 14:36 [place] [id number] Urgent Ultrasound 11/13/20 09:28 Completed Pending at discharge Category Date Time Status Bartonella DNA PC R Routine Lab 11/13/20 14:36 Received Blood Culture Sta t Lab 11/13/20 09:51 Results C Reactive Protei n AM LABS Lab 11/16/20 04:00 Ordered Complete Blood Co unt w/Auto AM LABS Lab 11/16/20 04:00 Ordered Complete Blood Co unt w/Auto AM LABS Lab 11/17/20 04:00 Ordered Comprehensive Met abolic Panel AM LA BS Lab 11/16/20 04:00 Ordered Comprehensive Met abolic Panel AM LA BS Lab 11/17/20 04:00 Ordered Procalcitonin AM LABS Lab 11/16/20 04:00 Ordered Vancomycin Trough Timed Lab 11/15/20 23:00 Ordered Labs from last 24 hours 11/15/20 11/15/20 11/15/20 06:20 06:20 06:20 WBC 10.2 H RBC 4.15 Hgb 13.1 Hct 40.6 L MCV 97.8 H MCH 31.6 MCHC 32.3 RDW 13.6 Plt Count 221 MPV 9.4 Neut % (Auto) 75.4 Lymph % (Auto) 11.9 [place] % (Auto) 9.8 Eos % (Auto) 1.8 Baso % (Auto) 0.3 Neut # (Auto) 7.67 Lymph # (Auto) 1.2 [place] # (Auto) 1.0 H Eos # (Auto) 0.2 Baso # (Auto) 0.0 Nucleated RBC % (a uto) 0 Nucleated RBCs # 0.0 ESR Sodium 135 L Potassium 4.2 Chloride 102 Carbon Dioxide 23 Anion Gap 14.2 BUN 9 Creatinine 0.8 GFR Calculation 98.6 Glucose 115 Calculated Osmolal ity 280 L Calcium 8.8 Total Bilirubin 0.3 AST 14 ALT 13 Alkaline Phosphata se 64 C-Reactive Protein 123.5 H Total Protein 6.9 Albumin 3.1 L Globulin 3.8 Procalcitonin 0.14 Vancomycin Trough 11/14/20 11/14/20 16:48 05:34 WBC RBC Hgb Hct MCV MCH MCHC RDW Plt Count MPV Neut % (Auto) Lymph % (Auto) [place] % (Auto) Eos % (Auto) Baso % (Auto) Neut # (Auto) Lymph # (Auto) [place] # (Auto) Eos # (Auto) Baso # (Auto) Nucleated RBC % (a uto) Nucleated RBCs # ESR 74 H Sodium Potassium Chloride Carbon Dioxide Anion Gap BUN Creatinine GFR Calculation Glucose Calculated Osmolal ity Calcium Total Bilirubin AST ALT Alkaline Phosphata se C-Reactive Protein Total Protein Albumin Globulin Procalcitonin Vancomycin Trough 7.1 L Vitals: Last Vital Signs Temp 97.5 F L 11/15/20 15:27 Pulse 79 11/15/20 15:27 Resp 18 11/15/20 15:27 BP 124/71 11/15/20 15:27 Pulse Ox 98 11/15/20 15:27 Discharge Plan Discharge Patient Disposition: Home Condition: Stable Prescriptions: New Augmentin 500-125 mg tablet 1 tab PO BID Qty: 14 RF: 0 levofloxacin 500 mg tablet 500 mg PO DAILY 7 Days Qty: 7 RF: 0 amlodipine 10 mg Tablet 10 mg PO DAILY 30 Days Qty: 30 RF: 0 No Action No Known Home Medications RF: 0 Discharge Orders: Discharge Order (Routine); Ordered 11/15/20 Ordered By: Dc Galvan Referrals: Álvaro Santiago MD [Physician] - 11/19/20 10:00 am Discharge Diet: Low Salt Discharge Activity: Resume usual activity Patient Instructions: Amoxicillin/Clavulanate Potassium (By mouth), Amlodipine (By mouth), Levofloxacin (By mouth), Cellulitis (DC), Opioid Safety Discharge Attestations Time Spent in Discharge Care*: less than 30 min Specific Discharge Activities: educating patient, educating and/or supporting family/caregiver, discussing with pcp/other providers, discussing with case manager/social workers/dc planners, documenting/other paperwork and evaluating patient/reviewing data Status at Discharge: Cognitive status at discharge: cognitively intact , Behavioral status at discharge: cooperative , Functional status at discharge: independent ambulation Overall status at discharge: patient is back to baseline Quality Metrics Clinical Quality Measures During this hospital stay, did patient experience: None Coding Level of Care Code Acute Chg FW DC note Diagnoses Cellulitis of forearm, right L03.113
[2020-11-15 19:27] VITALS: BP 124/71; PULSE 79; RESP 18; TEMP 36.9; O2SAT 98
[2020-11-19 11:38] LABS: Bartonella DNA PCR Source WHOLE BLOOD; Bartonella Henselae DNA PCR NOT DETECTED; Bartonella Quintana DNA PCR NOT DETECTED
== END 2020-11-15 16:00 | disposition home or self-care (01) ==
LOC: ER 12:01 → MEDSURG 17:17
PROVIDERS: Physician Assistant; Admitting Provider Family Medicine; Emergency Provider Family Medicine; Visit Provider Internal Medicine
DX: L03.113 Cellulitis of right upper limb (principal); L03.123 Acute lymphangitis of right upper limb; I10 Essential (primary) hypertension; F17.210 Nicotine dependence, cigarettes, uncomplicated
CPT/HCPCS: 36415; 73200; 80053; 80202; 82550; 83605; 84145; 84550; 85025; 85651; 86140; 87040; 87801; 93971; 96365; 96372; 99285; G0378; J1650; J2543; J3370; J3490; J7030; J7050; Q0144